=== PATIENT | male | born 1940 | race Caucasian/White ===

== ENCOUNTER 2023-11-16 19:25 | Emergency (ER) | payer BC, SELFPAY ==
[2023-11-16 19:29] VITALS: BP 121/84
[2023-11-16 19:55] LABS: % Basophils 0.5 % (0-2); % Eosinophils 0.8 % (0-6); % Immature Granulocytes 0.2 % (0-0.5); % Lymphocytes 5.6 % (20.5-51.1); % Monocytes 13.4 % (1.7-9.3); % Neutrophils 79.5 % (42.2-75.2); Absolute Eosinophils 0.1 10^3/uL (0-0.7); Absolute Lymphocytes 0.4 10^3/uL (1.2-3.4); Absolute Monocytes 0.9 10^3/uL (0.1-0.6); Absolute Neutrophils 5.1 10^3/uL (1.4-6.5); Hematocrit 45.5 % (39.0-52.0); Hemoglobin 15.6 g/dL (13.0-18.0); Mean Corp Hgb Conc. 34.3 g/dL (33.0-37.0); Mean Corpuscular Hgb 31.5 pg (27.0-31.0); Mean Corpuscular Volume 91.7 fL (80.0-94.0); Mean Platelet Volume 9.4 fL (7.4-10.4); Nucleated Red Blood Cells % 0 % (-); Platelet Count 158 10^3/uL (130-400); Red Blood Cell Count 4.96 10^6/uL (4.70-6.10); Red Cell Dist. Width 13.2 % (11.5-14.5); White Blood Cell Count 6.4 10^3/uL (4.8-10.8)
[2023-11-16 20:09] LABS: ALT (SGPT) 24 U/L (0-50); AST (SGOT) 33 U/L (17-59); Alkaline Phosphatase 60 U/L (38-126); Blood Urea Nitrogen 44 mg/dl (9-20); Calcium 8.9 mg/dl (8.4-10.2); Carbon Dioxide 28 mmol/L (22-30); Chloride 96 mmol/L (98-107); Glucose 105 mg/dl (70-99); Potassium 4.7 mmol/L (3.5-5.1); Sodium 132 mmol/L (135-145); Total Bilirubin 1.1 mg/dl (0.2-1.3); Total Protein 6.5 g/dl (6.3-8.2); eGFR 39.51
[2023-11-16 22:15] VITALS: BP 124/85
[2023-11-16 23:00] VITALS: BP 131/106
--- NOTE | 2023-11-16 23:31 | ED.GENMED ---
History of Present Illness
General
Chief Complaint: Breathing Problem
Source: patient
Exam Limitations: none
Time Seen by Provider: 11/16/23 22:31
Nursing documentation reviewed up to this point in time: agreed with
Travel History
Have you had any contact with someone who has COVID-19?: No
Do you have any symptoms of coronavirus? Fever > 100 degrees, chills, cough, shortness of breath, sore throat, loss of taste or smell, muscle aches, or headache?: No
History of Present Illness
History of Present Illness:
Patient presents to ED after an outpatient chest x-ray revealed pneumonia. Patient has had intermittent cough, nasal congestion, and decreased appetite over the past 6 days. However, over the past 2 days, coughing has lessened. Patient spoke with
his primary care physician who unfortunate was unable to see the patient, but ordered outpatient chest x-ray based on his symptoms. After chest x-ray report was available, patient received phone call from his primary care physician who advised
patient come to ED for an evaluation. Denies vomiting or diarrhea. Denies sore throat. Denies headache. Denies dizziness. Denies inability to sleep. Denies recent travel or surgery. Denies sick contact.
Past History
Past History
ED Past Medical History: Arrthythmia, HTN, Hypercholesterolemia and Other (Frequent urination with prostatic hypertrophy)
ED Past Surgical History: Appendectomy and Orthopedic
Social History
Tobacco: Non-smoker
Personal:
Living: with family
Review of Systems
Review of Systems
Allergies reviewed?: Yes
All Other Systems: ROS reviewed and negative except as documented in HPI and ROS
Constitutional: Reports no symptoms; Denies fever
Respiratory: Reports cough; Denies trouble breathing
Cardiac: Reports no symptoms
ABD/GI: Reports no symptoms
Musculoskeletal: Reports no symptoms
Skin: Reports no symptoms
Neurological: Reports no symptoms
Phy Exam
Physical Exam
Physical Exam:
Physical Exam
General: no apparent distress, not acutely ill. afebrile
Head: nc/at. eomi
Neck: supple. no meningeal signs.
Heart: s1/s2 regular rate and rhythm, no murmur. equal radial pulses.
Lungs: no acute respiratory distress. expiratory wheezing noted bilaterally
Abdomen: normal bowel sounds. not tender.
Neuro: alert and oriented. no focal neurological deficits
Skin: no rash
Psychiatric: well kept. interactive and cooperative
Extremities: no edema. no calf tenderness.
Scores
Heart Failure Risk
Heart Failure Risk Score: Not Applicable
Course
Orders/Labs/Results
Orders:
Orders
11/16/23 19:47
Complete Blood Count/With Diff Urgent
Comprehensive Metabolic Panel Urgent
Lactic Acid Urgent
11/16/23 23:31
Albuterol [ProAIR HFA INHALER] 2 puff INH R NOW STA
Prednisone [Deltasone] 50 mg PO NOW STA
Abnormal Lab Results
11/16/23
19:47
MCH 31.5 H pg
(27.0-31.0)
Absolute Lymphs (auto) 0.4 L 10^3/uL
(1.2-3.4)
Absolute Monos (auto) 0.9 H 10^3/uL
(0.1-0.6)
Neutrophils % 79.5 H %
(42.2-75.2)
Lymphocytes % 5.6 L %
(20.5-51.1)
Monocytes % 13.4 H %
(1.7-9.3)
Sodium 132 L mmol/L
(135-145)
Chloride 96 L mmol/L
(98-107)
BUN 44 H mg/dl
(9-20)
Creatinine 1.7 H mg/dL
(0.7-1.3)
Glucose 105 H mg/dl
(70-99)
11/16/23 19:47
11/16/23 19:47
Vital Signs
Initial and Last Documented VS:
Initial Vital Signs
Temp Pulse Resp BP Pulse Ox
98.8 F 111 20 121/84 94
11/16/23 19:29 11/16/23 19:29 11/16/23 19:29 11/16/23 19:29 11/16/23 19:29
Last Documented Vital Signs
Temp Pulse Resp BP Pulse Ox
98.8 F 106 30 131/106 97
11/16/23 19:29 11/16/23 23:00 11/16/23 23:00 11/16/23 23:00 11/16/23 23:53
MDM/Problems Addressed
MDM/Problems Addressed:
Chest x-ray report reviewed. Patient's presenting symptoms consistent with likely early pneumonia versus more likely bronchitis with wheezing. Patient will be advised to continue take Z-Volodymyr, as already prescribed by his primary physician, but will
add short course of prednisone as well as inhaler to be used for symptomatic relief. Advised PCP follow-up as an outpatient or return to ED with worsening symptoms.
Pulse ox 97% on room air.
*Critical Care Note
Total Time (30-74mins, 75-104mins- exclusive of procedures): Not Applicable
ED Attending Note
-
Portions of this chart may have been created with voice recognition software.� Occasional wrong word or��sound alike� substitutions may have occurred due to the inherent limitations of voice recognition software.
Discharge Plan
Departure
Patient Disposition: Home (Routine Discharge)
Date of Disposition: 11/16/23
Time of Disposition: 23:34
Patient with high blood pressure during this ER visit?: Yes
Discharge Problem:
Pneumonia
Instructions: Pneumonia in adults
Prescriptions:
New
prednisone 50 mg Tablet
50 mg PO DAILY Qty: 2 0RF
No Action
metoprolol tartrate 100 MG tablet
100 mg PO DAILY
tamsulosin 0.4 MG capsule
0.8 mg PO DAILY
hydrochlorothiazide 12.5 MG capsule
See Rx Instructions .ROUTE .COMPLEX
Rx Instructions:
12.5 mg orally
glucosam-chond gf-twbdrm-br ac 1 EACH capsule
1 tab PO BID
Eliquis 5 MG tablet
5 mg PO BID
triamcinolone acetonide 0.1 % Cream
1 applic TOPICAL DAILY
ezetimibe 10 mg Tablet
10 mg PO DAILY
dutasteride 0.5 mg Capsule
0.5 mg PO DAILY
rosuvastatin 10 mg Tablet
10 mg PO DAILY
Referrals:
Ovidio Herron, DO [Family Provider] -
UNKNOWN - PT DOES,NOT KNOW [Unknown Provider] -
Activity Restrictions/Additional Instructions:
As discussed, please follow-up with your primary care physician for reevaluation. Your has been sent electronically to [facility] pharmacy in [place].
Interventions
Interventions:
*Risk Screen - Suicide Last Done: 11/16/23 19:29
*General Assessment Last Done: 11/16/23 19:29
*Neglect/Abuse Screening Last Done: 11/16/23 19:29
ED- Fall Risk Assessment Last Done: 11/16/23 22:32
*ED COVID-19 Vaccine History Last Done: 11/16/23 22:31
*Nursing Disposition Last Done: 11/17/23 00:00
ED- Cardiac Assessment Last Done: 11/16/23 23:09
ED- Pulmonary Assessment Last Done: 11/16/23 23:09
Discharge Date and Time
Discharge Date/Time: 11/17/23 00:00
Print Language: SERBIAN
[2023-11-16] MEDS: ProAIR HFA INHALER 2 PUFF INH (23:48)
[2023-11-17] MEDS: DELTASONE 50 MG PO (00:03)
== END 2023-11-17 | disposition home or self-care (01) ==
LOC: EMR 19:25
PROVIDERS: Student in an Organized Health Care Education/Training Program; EMERGENCY PHYSICIAN Emergency Medicine; FAMILY PHYSICIAN Family Medicine
DX: J18.9 Pneumonia, unspecified organism (principal); I10 Essential (primary) hypertension; E78.00 Pure hypercholesterolemia, unspecified; I48.91 Unspecified atrial fibrillation; N40.1 Benign prostatic hyperplasia with lower urinary tract symptoms; R35.0 Frequency of micturition; Z79.01 Long term (current) use of anticoagulants
CPT/HCPCS: 99284; 94640; 71046; 80053; 83605; 85025

== ENCOUNTER 2025-01-03 13:19 | Emergency (ER) | payer BC, SELFPAY ==
[2025-01-03 13:24] VITALS: BP 128/87
--- NOTE | 2025-01-03 15:24 | ED.GENMED ---
History of Present Illness
General
Chief Complaint: Musculo-Skeletal Complaint
Time Seen by Provider: 01/03/25 15:00
History of Present Illness
History of Present Illness:
84-year-old male presents emergency department for evaluation of pinpoint focal pain to the right inguinal region/right lower abdomen for the past 2 days. Starts when he attempted to roll over in bed. Notes it is worse when he attempts to twist
his legs to get in and out of bed or chair as well as when standing upright. Denies any lower extremity radiculopathy or urinary symptoms
Past History
Past History
ED Past Medical History: Arrthythmia, HTN, Hypercholesterolemia and Other (Frequent urination with prostatic hypertrophy)
ED Past Surgical History: Appendectomy and Orthopedic
Social History
Tobacco: Non-smoker
Personal:
Living: with family
Review of Systems
Review of Systems
Allergies reviewed?: Yes
All Other Systems: ROS reviewed and negative except as documented in HPI and ROS
Phy Exam
Physical Exam
Physical Exam:
GEN: Well appearing, NAD, WDWN
HEENT: Oral mucosa moist, no scleral icterus
Cardiac: Regular rate
Lung: No respiratory distress, no tachypnea
MSK: No gross deformity or injuries. Right hip range of motion normal in all peters with no crepitus. Focal pinpoint tenderness to the upper right inguinal region with no palpable hernia or induration/erythema
Skin: Good color, no pallor or jaundice, no rashes
Neuro: AO x3, moves all extremities freely
Psych: Calm, cooperative
Course
Orders/Labs/Results
Orders:
Orders
01/03/25 15:24
CR Hip - RT w/wo Pel 2-3 Vw* Urgent
Comment:
Reason For Exam: hip injury
Include a pelvis x-ray?: Yes
Vital Signs
Initial and Last Documented VS:
Initial Vital Signs
Temp Pulse Resp BP Pulse Ox
98.2 F 87 18 128/87 95
01/03/25 13:24 01/03/25 13:24 01/03/25 13:24 01/03/25 13:24 01/03/25 13:24
Last Documented Vital Signs
Temp Pulse Resp BP Pulse Ox
98.2 F 87 18 128/87 95
01/03/25 13:24 01/03/25 13:24 01/03/25 13:24 01/03/25 13:24 01/03/25 15:24
MDM/Problems Addressed
MDM/Problems Addressed:
Likely an abdominal wall muscle strain. X-rays of the right hip obtained given advanced age and this showed no evidence for acute fracture, discussed supportive care
*Pulse Oximetry
SaO2: 95
Oxygen Mode of Delivery: Room air
Patient hypoxic: no
*Critical Care Note
Total Time (30-74mins, 75-104mins- exclusive of procedures): Not Applicable
ED Attending Note
-
Portions of this chart may have been created with voice recognition software.� Occasional wrong word or��sound alike� substitutions may have occurred due to the inherent limitations of voice recognition software.
Discharge Plan
Departure
Patient Disposition: Home (Routine Discharge)
Date of Disposition: 01/03/25
Time of Disposition: 16:23
Patient with high blood pressure during this ER visit?: No
Discharge Problem:
Abdominal muscle strain
Instructions: Abdominal Muscle Strain (DC)
Prescriptions:
No Action
metoprolol tartrate 100 MG tablet
100 mg PO DAILY
tamsulosin 0.4 MG capsule
0.8 mg PO DAILY
hydrochlorothiazide 12.5 MG capsule
See Rx Instructions .ROUTE .COMPLEX
Rx Instructions:
12.5 mg orally
glucosam-chond ev-dvrubn-gr ac 1 EACH capsule
1 tab PO BID
Eliquis 5 MG tablet
5 mg PO BID
triamcinolone acetonide 0.1 % Cream
1 applic TOPICAL DAILY
ezetimibe 10 mg Tablet
10 mg PO DAILY
dutasteride 0.5 mg Capsule
0.5 mg PO DAILY
rosuvastatin 10 mg Tablet
10 mg PO DAILY
prednisone 50 mg Tablet
50 mg PO DAILY Qty: 2 0RF
Referrals:
Ovidio Herron DO [Family Provider, Family Practice]
Interventions
Interventions:
*Risk Screen - Suicide Last Done: 01/03/25 13:24
*General Assessment Last Done: 01/03/25 13:24
*Neglect/Abuse Screening Last Done: 01/03/25 16:30
*ED- Fall Risk Assessment Last Done: 01/03/25 16:30
*ED COVID-19 Vaccine History Last Done: 01/03/25 16:30
*Nursing Disposition Last Done: 01/03/25 16:30
ED-Musculoskeletal Assessment Last Done: 01/03/25 15:15
Discharge Date and Time
Discharge Date/Time: 01/03/25 16:31
Print Language: CHADIAN
== END 2025-01-03 16:31 | disposition home or self-care (01) ==
LOC: EMR 13:19
PROVIDERS: EMERGENCY PHYSICIAN Student in an Organized Health Care Education/Training Program; FAMILY PHYSICIAN Family Medicine
DX: S39.011A Strain of muscle, fascia and tendon of abdomen, initial encounter (principal); X50.1XXA Overexertion from prolonged static or awkward postures, initial encounter; E78.00 Pure hypercholesterolemia, unspecified; I10 Essential (primary) hypertension; Z90.49 Acquired absence of other specified parts of digestive tract
CPT/HCPCS: 99283; 73502

== ENCOUNTER → 2025-02-01 10:32 | Outpatient (REF) | payer BC, SELFPAY | LOC: HWRAD 10:32 | PROVIDERS: ATTENDING PHYSICIAN Family Medicine | DX: R26.89 Other abnormalities of gait and mobility (principal); S09.90XA Unspecified injury of head, initial encounter | CPT/HCPCS: 70450 ==